=== PATIENT | female | born 1960 | race Caucasian/White ===

== ENCOUNTER 2024-01-19 16:25 | Emergency (ER) | payer BC, MEDICARE, SELFPAY ==
[2024-01-19] VITALS (8 sets, daily range): BP systolic 122–157; BP diastolic 58–84
[2024-01-19] MEDS: NSS 1000 IV (18:26)
[2024-01-19] MEDS: ZOFRAN 4 MG IV (18:27)
[2024-01-19 18:40] LABS: COVID-19 Antigen Positive (Negative)
[2024-01-19 18:42] LABS: % Immature Granulocytes 0.2 % (0-0.5); % Lymphocytes 19.5 % (20.5-51.1); % Monocytes 5.2 % (1.7-9.3); % Neutrophils 75.1 % (42.2-75.2); Absolute Lymphocytes 1.1 10^3/uL (1.2-3.4); Absolute Monocytes 0.3 10^3/uL (0.1-0.6); Absolute Neutrophils 4.3 10^3/uL (1.4-6.5); Hematocrit 37.1 % (37.0-47.0); Hemoglobin 12.7 g/dL (12.0-16.0); Mean Corp Hgb Conc. 34.2 g/dL (33.0-37.0); Mean Corpuscular Hgb 30.1 pg (27.0-31.0); Mean Corpuscular Volume 87.9 fL (81.0-99.0); Mean Platelet Volume 8.9 fL (7.4-10.4); Nucleated Red Blood Cells % 0 %; Platelet Count 199 10^3/uL (130-400); Red Blood Cell Count 4.22 10^6/uL (4.20-5.40); Red Cell Dist. Width 13.4 % (11.5-14.5); White Blood Cell Count 5.7 10^3/uL (4.8-10.8)
[2024-01-19 18:53] LABS: ALT (SGPT) 43 U/L (0-35); AST (SGOT) 34 U/L (14-36); Albumin 4.4 g/dl (3.5-5.0); Alkaline Phosphatase 120 U/L (38-126); Blood Urea Nitrogen 14 mg/dl (7-17); Calcium 9.9 mg/dl (8.4-10.2); Carbon Dioxide 28 mmol/L (22-30); Chloride 104 mmol/L (98-107); Glucose 100 mg/dl (70-99); Lipase 47 U/L (23-300); Potassium 4.4 mmol/L (3.5-5.1); Sodium 140 mmol/L (135-145); Total Bilirubin 0.7 mg/dl (0.2-1.3); eGFR > 60.00
[2024-01-19 19:26] LABS: Urine Albumin Negative (Neg - Trace); Urine Bilirubin Negative (Negative); Urine Character Slightly Cloudy (Clear); Urine Color Yellow; Urine Glucose Negative (Negative); Urine Ketone 3+ (Negative); Urine Leukocyte 1+ (Negative); Urine Nitrite Negative (Negative); Urine Occult Blood Negative (Negative); Urine Specific Gravity 1.015 (<1.030); Urine Urobilinogen Negative (Neg - 1+)
[2024-01-19 19:30] LABS: Urine Bacteria Many (Negative); Urine Squamous Cell >30 /LPF (Few)
[2024-01-19 19:31] LABS: Urine Red Blood Cell 0-2 /HPF (0-2)
--- NOTE | 2024-01-19 22:05 | ED.GENMED ---
History of Present Illness
General
Chief Complaint: Abdominal Symptoms
Source: patient
Exam Limitations: none
Time Seen by Provider: 01/19/24 16:56
Nursing documentation reviewed up to this point in time: agreed with
Travel History
Have you had any contact with someone who has COVID-19?: No
Do you have any symptoms of coronavirus? Fever > 100 degrees, chills, cough, shortness of breath, sore throat, loss of taste or smell, muscle aches, or headache?: No
History of Present Illness
History of Present Illness:
63-year-old female with a past medical history as documented who presents to the emergency room for evaluation of nausea and vomiting with some mild abdominal discomfort. Patient reports onset of symptoms yesterday�she says that she woke up with
nausea and had about 7 or 8 episodes of nonbloody vomiting throughout the day yesterday. She says that she had some vague abdominal discomfort. She says that this morning she woke up and was still nauseated and had another episode of vomiting; she
says she has not been able to tolerate food or drink by mouth and so she came to the emergency room for assessment. She has had some softer stools but no liquid stool/diarrhea. She denies any respiratory symptoms, chest pain, shortness of breath.
She denies any known sick contacts. She does report that she has been on antibiotics for UTI�she says that she has frequent UTIs and had some dysuria last week and was prescribed amoxicillin initially which was not helping this was changed to
Macrobid which seems to have improved her symptoms.
Past History
Past History
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
ED Past Surgical History: Bowel resection, Gynecological (hysterectomy 2016) and Other (arterial occlusion Left groin with stent)
Social History
Tobacco: Non-smoker
Alcohol: Occasional
Drug: None
Personal:
Living: with family
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
Family History
Family History: Other (Noncontributory)
Review of Systems
Review of Systems
All Other Systems: ROS reviewed and negative except as documented in HPI and ROS
Constitutional: Denies fever or chills
EENT: Denies sore throat or runny nose
Respiratory: Denies cough or trouble breathing
Cardiac: Denies chest pain or palpitations
ABD/GI: Reports abdominal pain, nausea and vomiting; Denies diarrhea
: Reports dysuria (Improved); Denies frequency or flank pain
Musculoskeletal: Denies neck pain or back pain
Neurological: Denies headache, weakness or numbness
Phy Exam
Physical Exam
Physical Exam:
General: Awake, alert, oriented x3; no acute distress
Head: Normocephalic, atraumatic
Eyes: Conjunctiva normal, sclera anicteric
Throat: Airway intact, handling secretions
Neck: Trachea midline, supple without meningismus
Lungs: Clear to auscultation bilaterally, no wheezing, rales, rhonchi
Heart: Regular rate and rhythm, no murmurs, gallops, or rubs
Abd: Soft, non distended, minimal tenderness in the lower abdomen
Neuro: Cranial nerves grossly intact, speech fluid
Skin: no rash
Extremities: No edema in extremities, equal pulses in all extremities
Scores
Heart Failure Risk
Heart Failure Risk Score: Not Applicable
Heart Score for Chest Pain Patients
STEMI patient?: Not applicable
Withdrawal Assessment of Alcohol
Withdrawal Assessment Completed?: Not applicable
Course
Orders/Labs/Results
Orders:
Orders
01/19/24 18:07
Ondansetron Injectable [Zofran] 4 mg IV NOW STA
01/19/24 18:08
CT Abd/pelvis W Iv Cont Urgent
Comment:
Reason For Exam: LLQ abd pain, N/V
0.9% Sodium Chloride 1000 ml [Nss] 1,000 ml IV BOLUS
01/19/24 18:16
COVID-19 Antigen Urgent
Source: Nasal Swab
Complete Blood Count/With Diff Urgent
Comprehensive Metabolic Panel Urgent
Lipase Urgent
01/19/24 19:14
Urinalysis Reflex To Culture Urgent
Date Specimen was Collected: 01/19/24
Time Specimen was Collected: 19:06
Urine Microscopic Reflex Cult Urgent
Urine Culture Urgent
MARITA Source: U
Specimen Description:
Date Specimen was Collected: 01/19/24
Time Specimen was Collected: 19:06
Abnormal Lab Results
01/19/24 01/19/24
18:16 19:14
Absolute Lymphs (auto) 1.1 L 10^3/uL
(1.2-3.4)
Lymphocytes % 19.5 L %
(20.5-51.1)
Glucose 100 H mg/dl
(70-99)
ALT 43 H U/L
(0-35)
Urine Ketones 3+ A
(Negative)
Leukocyte Esterase Rfl 1+ A
(Negative)
Urine Bacteria (Reflex) Many A
(Negative)
SARS-CoV-2 Antigen Positive A
(Negative)
01/19/24 18:16
01/19/24 18:16
Vital Signs
Initial and Last Documented VS:
Initial Vital Signs
Temp Pulse Resp BP Pulse Ox
37.3 C 76 18 150/84 100
01/19/24 16:30 01/19/24 16:30 01/19/24 16:30 01/19/24 16:30 01/19/24 16:30
Last Documented Vital Signs
Temp Pulse Resp BP Pulse Ox
37.3 C 88 18 122/67 99
01/19/24 16:30 01/19/24 21:37 01/19/24 21:37 01/19/24 21:37 01/19/24 21:37
MDM/Problems Addressed
Differential Diagnosis Includes:
Viral syndrome, gastritis, gastroenteritis, bowel obstruction, cholelithiasis, cholecystitis
MDM/Problems Addressed:
63-year-old female presents for evaluation of nausea and vomiting with some mild abdominal discomfort over the past 48 hours. She is currently being treated for UTI, urinary symptoms improved. Hypertensive in triage normalized on my assessment,
rest of vitals normal. Exam as above. Plan to check labs including a CBC and a CMP, lipase. Will check urinalysis. Will send for CT of the abdomen pelvis. Will check viral swabs. Will treat symptomatically. Monitor closely reassess after the
above.
Labs reviewed: CBC unremarkable, CMP no clinically significant abnormalities. Lipase normal. Urinalysis appears contaminated; urinary symptoms improved and no pyuria and she is already on antibiotic which I advised her to continue. Her COVID swab
was positive which I think likely accounts for her symptoms; her CT showed a questionable mild colitis but no other acute pathology. She has not really had diarrhea does have some mild lower abdominal discomfort but her primary concern is nausea
and vomiting which I think is likely attributable to COVID infection. She feels much better after Zofran and fluids here. She was able to tolerate p.o. food and liquid here without additional nausea or vomiting. No clear indication for admission
at this point in time I think she is stable for discharge. Advised her to follow-up with her primary doctor as an outpatient for reassessment. Will prescribe Zofran as needed for nausea and advised her to drink plenty of fluids and stick with a
bland diet. I did speak to her about potentially prescribing Paxlovid but she opted to forego this medication. She feels comfortable with this plan in place; spoke about return precautions and all questions answered.
Acute Exacerbation and/or Progression of Chronic Illness:
Acutely hypertensive resolved without intervention continue to monitor but no additional antihypertensive indicated at present
*Radiology
Radiology exam reviewed: radiology read reviewed
*Pulse Oximetry
Patient hypoxic: no
*Critical Care Note
Total Time (30-74mins, 75-104mins- exclusive of procedures): Not Applicable
Data Reviewed
Review of Other/Old Records Reveals: Labs and Records
Source: patient and records
ED Attending Note
-
Portions of this chart may have been created with voice recognition software.� Occasional wrong word or��sound alike� substitutions may have occurred due to the inherent limitations of voice recognition software.
Discharge Plan
Departure
Patient Disposition: Home (Routine Discharge)
Date of Disposition: 01/19/24
Time of Disposition: 21:26
Patient with high blood pressure during this ER visit?: Yes
Discharge Problem:
COVID-19, Nausea & vomiting
Instructions: Nausea and Vomiting, Adult (DC), COVID-19 ED
Prescriptions:
New
ondansetron 4 mg tablet,disintegrating
4 mg PO TIDPRN PRN (Reason: nausea/vomiting) Qty: 20 0RF
No Action
levothyroxine 100 MCG tablet
100 mcg PO DAILY
escitalopram oxalate 5 MG tablet
10 mg PO DAILY
zfcoveqvxmmr-wagi-klpgv acid [Centrum] 1 EACH tablet
1 ea PO DAILY
mupirocin 1 APPLIC ointment
1 applic topical BID Qty: 1 0RF
Patient Comments:
Pt denies starting this 3 days pre op, performed AM of surgery on 05/05/21 at bed side. Pt states 'I didnt have time to do it'
sennosides [senna] 1 TABLET tablet
2 tab PO BID 0RF
famotidine 20 MG tablet
20 mg PO HS Qty: 30 0RF
magnesium hydroxide 30 ML suspension
30 ml PO DAILYPRN PRN (Reason: constipation) 0RF
docusate sodium 100 MG capsule
100 mg PO BID 0RF
diazepam 5 MG tablet
5 mg PO HS Qty: 10 0RF
rivaroxaban [Xarelto] 10 MG tablet
10 mg PO QPM Qty: 2 0RF
Rx Instructions:
take sunday 9/3 pm and sat 94 pm
diphenhydramine HCl [Banophen] 25 MG capsule
25 mg PO HS Qty: 1 0RF
prednisone 10 MG tablet
40 mg PO TAPER Qty: 10 0RF
Rx Instructions:
4 tab(40mg) day 1, 3 tabs(30mg) day 2, 2 tabs(20mg) day3,
1 tab (10mg) day 4, then stop
hydromorphone 2 MG tablet
2 mg PO Q6HPRN PRN (Reason: moderate-severe pain) Qty: 30 0RF
Rx Instructions:
1 tab moderate pain or 2 if pain severe
dx joint replacement
ongoing therapy
acetaminophen [Tylenol Extra Strength] 500 MG tablet
1,000 mg PO QID Qty: 0 0RF
ondansetron 4 MG tablet,disintegrating
4 mg PO TID Qty: 20 0RF
Rx Instructions:
while on Dilaudid
rivaroxaban [Xarelto] 20 MG tablet
20 mg PO QPM Qty: 0 0RF
Rx Instructions:
resume Sunday 9/5 pm
cephalexin 500 mg capsule
500 mg PO Q6H 7 Days Qty: 28 0RF
Referrals:
Cosme Connell MD [Family Provider] - Follow up in 5-7 days
Activity Restrictions/Additional Instructions:
Thank you for visiting the Emergency Department at [facility].
1. Please schedule a follow up appointment as directed. Call first thing tomorrow morning to make an appointment.
2. If indicated, please take your medications as instructed and indicated on discharge paperwork.
3. If any of your symptoms do not improve, or persist, or become more severe within 6-12 hours, please return to the emergency department for further care.
4. Please return to the emergency department if you develop a headache, neck pain/stiffness, fever greater than 100.4F, chest pain, shortness of breath, persistent nausea, vomiting, slurred speech, difficulty walking, numbness/tingling, weakness,
signs of infection or any other symptoms that are worrisome to you.
Please call [phone] if you have any questions.
Interventions
Interventions:
*Risk Screen - Suicide Last Done: 01/19/24 17:07
*General Assessment Last Done: 01/19/24 16:30
*Neglect/Abuse Screening Last Done: 01/19/24 16:30
ED- Fall Risk Assessment Last Done: 01/19/24 17:06
*ED COVID-19 Vaccine History Last Done: 01/19/24 16:30
VF-Pvpueu-Ygxipyqmcu Assessment Last Done: 01/19/24 17:06
Discharge Date and Time
Print Language: ARMENIAN
== END 2024-01-19 22:43 | disposition home or self-care (01) ==
LOC: EMR 16:25
PROVIDERS: EMERGENCY PHYSICIAN Emergency Medicine; FAMILY PHYSICIAN Family Medicine
DX: U07.1 COVID-19 (principal); R11.2 Nausea with vomiting, unspecified; R03.0 Elevated blood-pressure reading, without diagnosis of hypertension
CPT/HCPCS: 99285; 96374; 96361; 74177; 80053; 81003; 81015; 83690; 85025; 87077; 87086; 87186; 87811; Q9967

== ENCOUNTER 2024-01-31 20:41 | Emergency (ER) | payer BC, MEDICARE, SELFPAY ==
[2024-01-31 20:51] VITALS: BP 155/97
[2024-01-31 21:10] VITALS: BP 143/88
--- NOTE | 2024-01-31 21:19 | EDRN ---
Addendum entered by Ashley Valentino RN 01/31/24 21:28:
Pt. also reports only took 2 doses of antibiotic for UTI.
Original Note:
Pt. reports she was diagnosed w/ covid on 01/19/24.
[2024-01-31 21:28] LABS: Urine Albumin Negative (Neg - Trace); Urine Bilirubin Negative (Negative); Urine Character Clear (Clear); Urine Color Yellow; Urine Glucose Negative (Negative); Urine Ketone Trace (Negative); Urine Leukocyte Negative (Negative); Urine Nitrite Negative (Negative); Urine Occult Blood Negative (Negative); Urine Urobilinogen Negative (Neg - 1+)
[2024-01-31 21:33] VITALS: BMI 42.8
--- NOTE | 2024-01-31 21:57 | ED.GENMED ---
History of Present Illness
General
Chief Complaint: Dizziness
Source: patient, records and family
Exam Limitations: none
Time Seen by Provider: 01/31/24 21:39
Nursing documentation reviewed up to this point in time: agreed with
Travel History
Have you had any contact with someone who has COVID-19?: No
Do you have any symptoms of coronavirus? Fever > 100 degrees, chills, cough, shortness of breath, sore throat, loss of taste or smell, muscle aches, or headache?: Yes
Symptoms:: covid test + last week
History of Present Illness
History of Present Illness:
Patient is a 63-year-old female with a history of ovarian cancer who presents to the emergency department complaining of increased lightheadedness and dizziness with nausea but no vomiting. Patient's had intermittent diarrhea with normal bowels.
Patient complains of chills without fever. Patient denies any nasal congestion, sore throat or cough. Patient complains of fatigue. Patient was seen 12 days ago in the emergency department and was found to have COVID. At that time the patient
was still being treated for UTI. Patient denies any dysuria, hematuria but admits to urgency and frequency. Patient mainly complains also of fatigue. Patient denies any chest pain, shortness of breath, abdominal pain or back pain.
Past History
Past History
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
ED Past Surgical History: Bowel resection, Gynecological (hysterectomy 2016) and Other (arterial occlusion Left groin with stent)
Social History
Tobacco: Non-smoker
Alcohol: Occasional
Drug: None
Personal:
Living: with family
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
Family History
Family History: Other (Noncontributory)
Review of Systems
Review of Systems
All Other Systems: ROS reviewed and negative except as documented in HPI and ROS
Constitutional: Reports fatigue and chills; Denies fever
EENT: Reports no symptoms
Respiratory: Reports no symptoms
Cardiac: Reports no symptoms
ABD/GI: Reports nausea; Denies abdominal pain, vomiting, diarrhea or anorexia
: Reports no symptoms
Musculoskeletal: Reports no symptoms
Skin: Reports no symptoms
Neurological: Reports no symptoms
Hematologic/Lymphatic: Reports no symptoms
Psychiatric: Reports no symptoms
Phy Exam
Physical Exam
Physical Exam:
Physical Exam
General: mild distress, alert and appropriate, obese, dry mucous membranes
HENT: Normocephalic, supple with no lymphadenopathy, no thyromegaly
Eyes: Clear sclera, conjuctiva without injection
Heart: Regular rhythm and rate. No S3, S4. No murmur. No NVD
Lungs: No respiratory distress, no stridor, lung sounds clear and equal bilaterally
Abdomen: Soft, nontender, no organomegaly, BS good
Neuro: Alert and oriented x 3, CN II - XII intact, no motor focality
Skin: no rash
Psychiatric: well kept. interactive and cooperative
Extremities: No edema, cyanosis, tenderness
Course
Orders/Labs/Results
Orders:
Orders
01/31/24 21:17
UA Reflex to Culture [Urinalysis Reflex To Culture] Urgent
Date Specimen was Collected: 01/31/24
Time Specimen was Collected: 21:16
01/31/24 21:55
0.9% Sodium Chloride 1000 ml [Nss] 1,000 ml IV BOLUS
Ondansetron Injectable [Zofran] 4 mg IV NOW STA
01/31/24 22:15
Complete Blood Count/With Diff Urgent
Comprehensive Metabolic Panel Urgent
Abnormal Lab Results
01/31/24 01/31/24
21:17 22:15
Absolute Lymphs (auto) 0.9 L 10^3/uL
(1.2-3.4)
Neutrophils % 77.9 H %
(42.2-75.2)
Lymphocytes % 16.9 L %
(20.5-51.1)
Glucose 139 H mg/dl
(70-99)
Calcium 10.4 H mg/dl
(8.4-10.2)
AST 44 H U/L
(14-36)
ALT 47 H U/L
(0-35)
Urine Ketones Trace A
(Negative)
01/31/24 22:15
01/31/24 22:15
Vital Signs
Initial and Last Documented VS:
Initial Vital Signs
Temp Pulse Resp BP Pulse Ox
97.9 F 89 18 155/97 100
01/31/24 20:51 01/31/24 20:51 01/31/24 20:51 01/31/24 20:51 01/31/24 20:51
Last Documented Vital Signs
Temp Pulse Resp BP Pulse Ox
97.9 F 77 12 166/74 100
01/31/24 20:51 02/01/24 00:30 02/01/24 00:30 02/01/24 00:02 02/01/24 00:30
*Radiology
Radiology exam reviewed: other (na)
*Pulse Oximetry
Patient hypoxic: no
*EKG
Interpreted by ED Provider?: NA
*Press Feeder Interpretation
Rate: Press Feeder- N/A
*Critical Care Note
Total Time (30-74mins, 75-104mins- exclusive of procedures): Not Applicable
Update Note
Update Note:
Patient feeling much improved and able to eat and drink. Patient did well with Zofran. Patient will be discharged. Believe this to be a result of possible gastritis. It could be a long-term effect of COVID.
ED Attending Note
-
Portions of this chart may have been created with voice recognition software.� Occasional wrong word or��sound alike� substitutions may have occurred due to the inherent limitations of voice recognition software.
Discharge Plan
Departure
Patient Disposition: Home (Routine Discharge)
Date of Disposition: 02/01/24
Time of Disposition: 00:38
Patient with high blood pressure during this ER visit?: Yes
Condition: Fair
Covid-19: Not Applicable
Discharge Problem:
Acute gastritis, Mild dehydration
Instructions: Dehydration, Adult (DC), [place] Diet, Nausea and Vomiting, Adult (DC), BLOOD PRESSURE
Prescriptions:
New
ondansetron 8 mg tablet,disintegrating
8 mg PO TID PRN (Reason: nausea and vomiting) Qty: 20 0RF
No Action
levothyroxine 100 MCG tablet
100 mcg PO DAILY
escitalopram oxalate 5 MG tablet
10 mg PO DAILY
rfhsoopkqsvj-jyle-xviya acid [Centrum] 1 EACH tablet
1 ea PO DAILY
mupirocin 1 APPLIC ointment
1 applic topical BID Qty: 1 0RF
Patient Comments:
Pt denies starting this 3 days pre op, performed AM of surgery on 05/05/21 at bed side. Pt states 'I didnt have time to do it'
sennosides [senna] 1 TABLET tablet
2 tab PO BID 0RF
famotidine 20 MG tablet
20 mg PO HS Qty: 30 0RF
magnesium hydroxide 30 ML suspension
30 ml PO DAILYPRN PRN (Reason: constipation) 0RF
docusate sodium 100 MG capsule
100 mg PO BID 0RF
diazepam 5 MG tablet
5 mg PO HS Qty: 10 0RF
rivaroxaban [Xarelto] 10 MG tablet
10 mg PO QPM Qty: 2 0RF
Rx Instructions:
take sunday 9/3 pm and sat 9/4 pm
diphenhydramine HCl [Banophen] 25 MG capsule
25 mg PO HS Qty: 1 0RF
prednisone 10 MG tablet
40 mg PO TAPER Qty: 10 0RF
Rx Instructions:
4 tab(40mg) day 1, 3 tabs(30mg) day 2, 2 tabs(20mg) day3,
1 tab (10mg) day 4, then stop
hydromorphone 2 MG tablet
2 mg PO Q6HPRN PRN (Reason: moderate-severe pain) Qty: 30 0RF
Rx Instructions:
1 tab moderate pain or 2 if pain severe
dx joint replacement
ongoing therapy
acetaminophen [Tylenol Extra Strength] 500 MG tablet
1,000 mg PO QID Qty: 0 0RF
ondansetron 4 MG tablet,disintegrating
4 mg PO TID Qty: 20 0RF
Rx Instructions:
while on Dilaudid
rivaroxaban [Xarelto] 20 MG tablet
20 mg PO QPM Qty: 0 0RF
Rx Instructions:
resume Sunday 9/5 pm
cephalexin 500 mg capsule
500 mg PO Q6H 7 Days Qty: 28 0RF
ondansetron 4 mg tablet,disintegrating
4 mg PO TIDPRN PRN (Reason: nausea/vomiting) Qty: 20 0RF
Referrals:
UNKNOWN - PT DOES,NOT KNOW [Family Provider] -
Activity Restrictions/Additional Instructions:
Continue present medications and therapy. Make sure to follow-up with your family physician in 3 to 4 days.
Interventions
Interventions:
ED- Fall Risk Assessment Last Done: 01/31/24 23:41
RA-Qrqkbh-Ulydubuncf Assessment Last Done: 01/31/24 21:33
ED- Neurological Assessment Last Done: 01/31/24 21:33
ED Swallowing Screen Last Done: 01/31/24 21:33
Discharge Date and Time
Print Language: MALIAN
[2024-01-31 22:00] VITALS: BP 146/61
[2024-01-31] MEDS: ZOFRAN 4 MG IV (22:13)
[2024-01-31] MEDS: NSS 1000 IV (22:13)
[2024-01-31 22:24] LABS: % Immature Granulocytes 0.2 % (0-0.5); % Lymphocytes 16.9 % (20.5-51.1); % Neutrophils 77.9 % (42.2-75.2); Absolute Lymphocytes 0.9 10^3/uL (1.2-3.4); Absolute Monocytes 0.3 10^3/uL (0.1-0.6); Hematocrit 38.9 % (37.0-47.0); Hemoglobin 13.2 g/dL (12.0-16.0); Mean Corp Hgb Conc. 33.9 g/dL (33.0-37.0); Mean Corpuscular Hgb 30.2 pg (27.0-31.0); Mean Platelet Volume 9.4 fL (7.4-10.4); Nucleated Red Blood Cells % 0 %; Platelet Count 198 10^3/uL (130-400); Red Blood Cell Count 4.37 10^6/uL (4.20-5.40); Red Cell Dist. Width 13.2 % (11.5-14.5); White Blood Cell Count 5.2 10^3/uL (4.8-10.8)
[2024-01-31 22:45] LABS: ALT (SGPT) 47 U/L (0-35); AST (SGOT) 44 U/L (14-36); Albumin 4.5 g/dl (3.5-5.0); Alkaline Phosphatase 107 U/L (38-126); Blood Urea Nitrogen 16 mg/dl (7-17); Calcium 10.4 mg/dl (8.4-10.2); Carbon Dioxide 25 mmol/L (22-30); Chloride 104 mmol/L (98-107); Estimated Creatinine Clearance 100 ml/min; Glucose 139 mg/dl (70-99); Potassium 4.2 mmol/L (3.5-5.1); Sodium 138 mmol/L (135-145); Total Bilirubin 0.6 mg/dl (0.2-1.3); Total Protein 7.3 g/dl (6.3-8.2); eGFR > 60.00
[2024-01-31 23:00] VITALS: BP 130/61
[2024-02-01 00:02] VITALS: BP 166/74
== END 2024-02-01 01:18 | disposition home or self-care (01) ==
LOC: EMR 20:41
PROVIDERS: EMERGENCY PHYSICIAN Emergency Medicine
DX: K29.00 Acute gastritis without bleeding (principal); E86.0 Dehydration; U07.1 COVID-19; E03.9 Hypothyroidism, unspecified; G47.30 Sleep apnea, unspecified; Z85.43 Personal history of malignant neoplasm of ovary; Z86.718 Personal history of other venous thrombosis and embolism; Z87.440 Personal history of urinary (tract) infections; Z90.710 Acquired absence of both cervix and uterus
CPT/HCPCS: 99283; 96374; 96361; 80053; 81003; 85025

== ENCOUNTER 2024-02-20 19:26 | Emergency (ER) | payer BC, MEDICARE, SELFPAY ==
[2024-02-20 19:31] VITALS: BP 148/70
--- NOTE | 2024-02-20 20:25 | ED.GENMED ---
History of Present Illness
General
Chief Complaint: Visual Problem
Source: patient
Exam Limitations: none
Time Seen by Provider: 02/20/24 20:04
Travel History
Have you had any contact with someone who has COVID-19?: No
Do you have any symptoms of coronavirus? Fever > 100 degrees, chills, cough, shortness of breath, sore throat, loss of taste or smell, muscle aches, or headache?: No
History of Present Illness
History of Present Illness:
63 year old female with remote history of ovarian cancer and reflux presents complaining of progressive worsening blurry vision out of the left eye started 3 days ago. She notes slight discomfort to the left eye. She denies loss of vision or
double vision. She denies any significant headache. She was also told recently she is a borderline diabetic and they have noted a sweet smelling urine recently. She is urinating more frequently. She denies chest pain or shortness of breath. No
other complaints at this time.
Past History
Past History
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
ED Past Surgical History: Bowel resection, Gynecological (hysterectomy 2016) and Other (arterial occlusion Left groin with stent)
Social History
Tobacco: Non-smoker
Alcohol: Occasional
Drug: None
Personal:
Living: with family
Employment: Retired (s[employer])
Family History
Family History: Other (Noncontributory)
Phy Exam
Physical Exam
Physical Exam:
General: Well-appearing female no acute respiratory distress
HEENT: Normocephalic atraumatic pupils equal round reactive to light extraocular motions are intact. Funduscopic exam within normal limits bilaterally
Heart: Regular rate and rhythm no murmurs
Lungs: Clear no wheeze or rales
Extremities: No cyanosis or edema
Neurologic exam: Alert and oriented visual mo intact. Finger-nose intact.
Extremities: No cyanosis or edema
Skin warm no rash or lesions
Course
Orders/Labs/Results
Orders:
Orders
02/20/24 20:17
CT Head W/o Iv Contrast Urgent
Comment:
Reason For Exam: left eye blurry vision, history of ovarian CA
02/20/24 20:24
Complete Blood Count/With Diff Urgent
Comprehensive Metabolic Panel Urgent
02/20/24 20:34
Urinalysis Reflex To Culture Urgent
Date Specimen was Collected: 02/20/24
Time Specimen was Collected: 20:27
Urine Microscopic Reflex Cult Urgent
Urine Culture Urgent
MARITA Source: U
Specimen Description:
Date Specimen was Collected: 02/20/24
Time Specimen was Collected: 20:27
Abnormal Lab Results
02/20/24 02/20/24
20:24 20:34
WBC 4.6 L 10^3/uL
(4.8-10.8)
MCHC 32.9 L g/dL
(33.0-37.0)
Plt Count 92 L 10^3/uL
(130-400)
MPV 11.0 H fL
(7.4-10.4)
BUN 25 H mg/dl
(7-17)
Glucose 100 H mg/dl
(70-99)
Calcium 10.3 H mg/dl
(8.4-10.2)
AST 41 H U/L
(14-36)
ALT 42 H U/L
(0-35)
Urine Nitrite (Reflex) Positive A
(Negative)
Leukocyte Esterase Rfl Trace A
(Negative)
Urine WBC (Reflex) 16-20 A /HPF
(0-5)
Urine Bacteria (Reflex) Many A
(Negative)
02/20/24 20:24
02/20/24 20:24
Vital Signs
Initial and Last Documented VS:
Initial Vital Signs
Temp Pulse Resp BP Pulse Ox
98.0 F 79 22 148/70 100
02/20/24 19:31 02/20/24 19:31 02/20/24 19:31 02/20/24 19:31 02/20/24 19:31
Last Documented Vital Signs
Temp Pulse Resp BP Pulse Ox
98.0 F 79 22 148/70 100
02/20/24 19:31 02/20/24 19:31 02/20/24 19:31 02/20/24 19:31 02/20/24 19:31
MDM/Problems Addressed
Differential Diagnosis Includes:
Blurry vision left eye. Consider corneal abrasion versus increased intraocular pressure versus neurologic event. She notes excessive thirst and increased urination. Consider hyperglycemia. Will check labs. CT of head pending.
*Critical Care Note
Total Time (30-74mins, 75-104mins- exclusive of procedures): Not Applicable
Update Note
Update Note:
Workup here essentially negative. CT negative. Urinalysis looks like contaminated specimen large amount of squamous cells. Patient has no urinary symptoms would not treat at this time. Pressures were checked in the left eye with a Herber-Pen which
averaged 15 mmHg. There is no abrasion in the left eye that was visible on my exam with fluorescein stain and Murillo lamp. No urgent indication for any further intervention but would recommend follow-up with ophthalmology as an outpatient. She is
stable for discharge
ED Attending Note
-
Portions of this chart may have been created with voice recognition software.� Occasional wrong word or��sound alike� substitutions may have occurred due to the inherent limitations of voice recognition software.
Discharge Plan
Departure
Patient Disposition: Home (Routine Discharge)
Date of Disposition: 02/20/24
Time of Disposition: 22:11
Patient with high blood pressure during this ER visit?: No
Discharge Problem:
Blurred vision, left eye
Prescriptions:
No Action
levothyroxine 100 MCG tablet
100 mcg PO DAILY
Centrum 1 EACH tablet
1 ea PO DAILY
dicyclomine 20 mg tablet
20 mg PO BID
escitalopram oxalate 10 mg tablet
10 mg PO DAILY
Referrals:
Axel Singh MD [Family Provider] -
Activity Restrictions/Additional Instructions:
Please return here for worsening symptoms otherwise follow-up with your eye doctor
Interventions
Interventions:
*Risk Screen - Suicide Last Done: 02/20/24 20:57
*General Assessment Last Done: 02/20/24 19:34
*Neglect/Abuse Screening Last Done: 02/20/24 20:57
ED- Fall Risk Assessment Last Done: 02/20/24 20:57
*ED COVID-19 Vaccine History Last Done: 02/20/24 20:57
ED- Neurological Assessment Last Done: 02/20/24 20:42
ED-EENT Assessment Last Done: 02/20/24 20:42
Discharge Date and Time
Print Language: [id number]
[2024-02-20 20:32] LABS: % Immature Granulocytes 0.2 % (0-0.5); % Lymphocytes 27.3 % (20.5-51.1); % Monocytes 7.4 % (1.7-9.3); % Neutrophils 65.1 % (42.2-75.2); Absolute Lymphocytes 1.3 10^3/uL (1.2-3.4); Absolute Monocytes 0.3 10^3/uL (0.1-0.6); Hematocrit 39.5 % (37.0-47.0); Mean Corp Hgb Conc. 32.9 g/dL (33.0-37.0); Mean Corpuscular Hgb 30.1 pg (27.0-31.0); Mean Corpuscular Volume 91.4 fL (81.0-99.0); Nucleated Red Blood Cells % 0 %; Platelet Count 92 10^3/uL (130-400); Red Blood Cell Count 4.32 10^6/uL (4.20-5.40); Red Cell Dist. Width 13.2 % (11.5-14.5); White Blood Cell Count 4.6 10^3/uL (4.8-10.8)
[2024-02-20 20:40] LABS: Urine Albumin Negative (Neg - Trace); Urine Bilirubin Negative (Negative); Urine Character Slightly Cloudy (Clear); Urine Color Yellow; Urine Glucose Negative (Negative); Urine Ketone Negative (Negative); Urine Leukocyte Trace (Negative); Urine Nitrite Positive (Negative); Urine Occult Blood Negative (Negative); Urine Specific Gravity 1.025 (<1.030); Urine Urobilinogen Negative (Neg - 1+)
[2024-02-20 20:48] LABS: ALT (SGPT) 42 U/L (0-35); AST (SGOT) 41 U/L (14-36); Albumin 4.7 g/dl (3.5-5.0); Alkaline Phosphatase 103 U/L (38-126); Blood Urea Nitrogen 25 mg/dl (7-17); Calcium 10.3 mg/dl (8.4-10.2); Carbon Dioxide 26 mmol/L (22-30); Chloride 105 mmol/L (98-107); Glucose 100 mg/dl (70-99); Potassium 4.1 mmol/L (3.5-5.1); Sodium 141 mmol/L (135-145); Total Bilirubin 0.4 mg/dl (0.2-1.3); Total Protein 7.2 g/dl (6.3-8.2); eGFR > 60.00
[2024-02-20 20:49] LABS: Urine Bacteria Many (Negative); Urine Squamous Cell >30 /LPF (Few); Urine White Cell 16-20 /HPF (0-5)
[2024-02-20 20:50] LABS: Urine Red Blood Cell 0-2 /HPF (0-2)
[2024-02-20 22:18] VITALS: BP 146/70
== END 2024-02-20 22:19 | disposition home or self-care (01) ==
LOC: EMR 19:26
PROVIDERS: Physician Assistant; EMERGENCY PHYSICIAN Emergency Medicine; FAMILY PHYSICIAN Internal Medicine
DX: H53.8 Other visual disturbances (principal); E03.9 Hypothyroidism, unspecified; F41.9 Anxiety disorder, unspecified; E11.9 Type 2 diabetes mellitus without complications; G47.30 Sleep apnea, unspecified; G89.29 Other chronic pain; K21.9 Gastro-esophageal reflux disease without esophagitis; Z85.43 Personal history of malignant neoplasm of ovary; Z86.718 Personal history of other venous thrombosis and embolism; Z90.710 Acquired absence of both cervix and uterus
CPT/HCPCS: 99284; 70450; 80053; 81003; 81015; 85025; 87086

== ENCOUNTER 2025-02-23 16:10 | Emergency (ER) | payer BC, MEDICARE, SELFPAY ==
[2025-02-23 16:18] VITALS: BP 176/94
[2025-02-23 16:44] LABS: % Immature Granulocytes 0.4 % (0-0.5); % Lymphocytes 29.5 % (20.5-51.1); % Monocytes 7.3 % (1.7-9.3); % Neutrophils 62.8 % (42.2-75.2); Absolute Lymphocytes 1.4 10^3/uL (1.2-3.4); Absolute Monocytes 0.4 10^3/uL (0.1-0.6); Hematocrit 37.8 % (37.0-47.0); Hemoglobin 12.8 g/dL (12.0-16.0); Mean Corp Hgb Conc. 33.9 g/dL (33.0-37.0); Mean Corpuscular Hgb 30.1 pg (27.0-31.0); Mean Corpuscular Volume 88.9 fL (81.0-99.0); Mean Platelet Volume 9.2 fL (7.4-10.4); Nucleated Red Blood Cells % 0 %; Platelet Count 212 10^3/uL (130-400); Red Blood Cell Count 4.25 10^6/uL (4.20-5.40); White Blood Cell Count 4.8 10^3/uL (4.8-10.8)
[2025-02-23 16:52] LABS: ALT (SGPT) 23 U/L (0-35); AST (SGOT) 22 U/L (14-36); Albumin 4.7 g/dl (3.5-5.0); Alkaline Phosphatase 100 U/L (38-126); Blood Urea Nitrogen 19 mg/dl (7-17); Calcium 10.1 mg/dl (8.4-10.2); Carbon Dioxide 23 mmol/L (22-30); Chloride 109 mmol/L (98-107); Glucose 96 mg/dl (70-99); Potassium 4.6 mmol/L (3.5-5.1); Sodium 140 mmol/L (135-145); Total Bilirubin 0.5 mg/dl (0.2-1.3); Total Protein 7.5 g/dl (6.3-8.2); eGFR > 60.00
[2025-02-23 16:55] LABS: Urine Albumin Negative (Neg - Trace); Urine Bilirubin Negative (Negative); Urine Character Clear (Clear); Urine Color Yellow; Urine Glucose Negative (Negative); Urine Ketone Negative (Negative); Urine Leukocyte Negative (Negative); Urine Nitrite Negative (Negative); Urine Occult Blood Negative (Negative); Urine Specific Gravity 1.005 (<1.030); Urine Urobilinogen Negative (Neg - 1+)
[2025-02-23 20:26] VITALS: BP 129/64
[2025-02-23 20:27] VITALS: BMI 42.6
--- NOTE | 2025-02-23 20:38 | ED.GENMED ---
History of Present Illness
General
Chief Complaint: Flank Pain
Source: patient, spouse and family (daughter)
Exam Limitations: none
Time Seen by Provider: 02/23/25 20:26
Nursing documentation reviewed up to this point in time: agreed with
History of Present Illness
History of Present Illness:
Note:
CHIEF COMPLAINT(S)
Flank pain radiating to the back.
HISTORY OF PRESENT ILLNESS
The patient is a 64-year-old female with a history of remission from brain cancer, presenting with right flank pain radiating to the back, which started a couple of days ago. The patient denied any previous episodes of similar pain. The pain was
severe enough to impair her ability to drive. No associated vomiting or diarrhea was reported. The patient consumed food today. She denies hematuria and notes normal bowel movements and urine appearance.
ADDITIONAL HISTORY OBTAINED FROM SOURCES OTHER THAN THE PATIENT
According to the daughter, the pain was intense enough that the patient could not drive herself to the hospital.
REVIEW OF SYSTEMS
- Gastrointestinal: Denies vomiting and diarrhea.
- Genitourinary: Denies hematuria; urine appears normal.
- Musculoskeletal: Flank pain radiating to the back.
PHYSICAL EXAM
Physical Exam
General: no apparent distress, not acutely ill
Neck: supple. no meningeal signs. normal posterior pharynx
Heart: s1/s2 regular rate and rhythm, no murmur. equal radial
pulses.
HEENT: Pupils equal round reactive to light, EOMI
Lungs: no acute respiratory distress. clear bilaterally
Abdomen: normal bowel sounds. not tender. no CVAT
Neuro: alert and oriented. no focal neurological deficits cranial nerves II through XII intact
Skin: no rash
Psychiatric: well kept. interactive and cooperative
Extremities: no edema. no calf tenderness. negative homans. good distal pulses
DIFFERENTIAL DIAGNOSIS
The Differential Diagnosis includes, in no particular order and is not limited to:
- Nephrolithiasis
- Pyelonephritis
- Musculoskeletal pain
- Herpes Zoster
- Abdominal aortic aneurysm
- Pancreatitis
- Cholelithiasis
- Diverticulitis
- Renal tumor
- Urinary tract infection
02/23/25 - 22:13
Patient remains pain-free and stable for discharge. Abdominal exam benign. CT scan shows constipation, no new findings. Discharge with follow-up for managing constipation recommended.
SUMMARY OF ENCOUNTER
The patient is a 64-year-old female who presented to the emergency department with severe right flank pain radiating to the back, impairing her ability to drive. She denied associated vomiting or diarrhea and noted normal bowel movements and urine
appearance. Given her history, a CT scan was conducted, which identified constipation but no other significant findings. The patient�s pain was managed appropriately, leading to stabilization.
DISPOSITION
Discharged home.
ASSESSMENT
Right-flank pain due to constipation.
MEDICATION RECONCILIATION
Prescribed Miralax once daily for one week.
MEDICAL DECISION MAKING
1. Number & Complexity of Problems: Chronic conditions affecting care: history of remission from brain cancer.
2. Data Reviewed: CT scan reviewed indicated constipation without additional abnormalities.
3. Risk: Consideration of admission/observation was made due to pain severity and radiating nature. However, outpatient management was appropriate based on reassuring work-up, stable vitals, symptom control, and follow-up reliability.
FOLLOW-UP INSTRUCTIONS
Follow up with primary care provider for further management of constipation and any further evaluation necessary.
PATHOLOGIES TO CONSIDER
- Nephrolithiasis
- Pyelonephritis
- Abdominal aortic aneurysm
- Pancreatitis
- Cholelithiasis
- Renal tumor
- Urinary tract infection
Past History
Past History
ED Past Medical History: Cancer (ovarian last chemo/radiation 2016, To bowel), Hypothyroidism, Psychiatric (Anxiety) and Other (chronic low back pain, Sleep apnea, DVT, )
ED Past Surgical History: Bowel resection, Gynecological (hysterectomy 2016) and Other (arterial occlusion Left groin with stent)
Social History
Tobacco: Non-smoker
Alcohol: Occasional
Drug: None
Personal:
Living: with family
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
Family History
Family History: Other (Noncontributory)
Phy Exam
Physical Exam
Physical Exam:
.
Course
Orders/Labs/Results
Orders:
Orders
02/23/25 16:28
Complete Blood Count/With Diff Urgent
Comprehensive Metabolic Panel Urgent
Urinalysis Reflex To Culture Urgent
Date Specimen was Collected: 02/23/25
Time Specimen was Collected: 16:13
02/23/25 20:37
CT Abd/pelvis W Iv Cont Urgent
Comment:
Reason For Exam: right flank and back pain 2-3 days
Abnormal Lab Results
02/23/25
16:28
Chloride 109 H mmol/L
(98-107)
BUN 19 H mg/dl
(7-17)
02/23/25 16:28
02/23/25 16:28
Vital Signs
Initial and Last Documented VS:
Initial Vital Signs
Temp Pulse Resp BP Pulse Ox
98.4 F 90 18 176/94 98
02/23/25 16:18 02/23/25 16:18 02/23/25 16:18 02/23/25 16:18 02/23/25 16:18
Last Documented Vital Signs
Temp Pulse Resp BP Pulse Ox
98.4 F 76 18 140/68 98
02/23/25 16:18 02/23/25 20:28 02/23/25 20:28 02/23/25 22:00 02/23/25 22:00
*Pulse Oximetry
SaO2: 98
Patient hypoxic: no
*Critical Care Note
Total Time (30-74mins, 75-104mins- exclusive of procedures): Not Applicable
ED Attending Note
-
Portions of this chart may have been created with voice recognition software.� Occasional wrong word or��sound alike� substitutions may have occurred due to the inherent limitations of voice recognition software.
Discharge Plan
Departure
Patient Disposition: Home (Routine Discharge)
Date of Disposition: 02/23/25
Time of Disposition: 22:03
Patient with high blood pressure during this ER visit?: Yes
Condition: Good
Discharge Problem:
Acute right flank pain, Constipation
Instructions: Flank Pain (DC), Constipation in adults - ED discharge instructions, BLOOD PRESSURE
Prescriptions:
No Action
levothyroxine 100 MCG tablet
100 mcg PO DAILY
Centrum 1 EACH tablet
1 ea PO DAILY
dicyclomine 20 mg tablet
20 mg PO BID
escitalopram oxalate 10 mg tablet
10 mg PO DAILY
nitrofurantoin macrocrystal 100 mg capsule
100 mg PO BID 5 Days Qty: 10 0RF
Referrals:
UNKNOWN - PT DOES,NOT KNOW [Family Provider]
Activity Restrictions/Additional Instructions:
Follow up with primary care. Return for any concerns. Use miralax once daily, 1 scoop in juice for 1 week.
Interventions
Interventions:
*Risk Screen - Suicide Last Done: 02/23/25 20:30
*General Assessment Last Done: 02/23/25 20:30
*Neglect/Abuse Screening Last Done: 02/23/25 20:30
*ED- Fall Risk Assessment Last Done: 02/23/25 20:30
*ED COVID-19 Vaccine History Last Done: 02/23/25 20:30
SO-Sxpxfy-Meefbeecae Assessment Last Done: 02/23/25 20:30
ED-Female Genitourinary Assessment Last Done: 02/23/25 20:30
Discharge Date and Time
Print Language: GEORGIAN
[2025-02-23 21:14] VITALS: BP 143/69
[2025-02-23 22:00] VITALS: BP 140/68
== END 2025-02-23 22:54 | disposition home or self-care (01) ==
LOC: EMR 16:10
PROVIDERS: Emergency Medicine; EMERGENCY PHYSICIAN Emergency Medicine; FAMILY PHYSICIAN Internal Medicine
DX: R10.9 Unspecified abdominal pain (principal); K59.00 Constipation, unspecified; E03.9 Hypothyroidism, unspecified; F41.9 Anxiety disorder, unspecified; G47.30 Sleep apnea, unspecified; Z85.43 Personal history of malignant neoplasm of ovary; Z86.718 Personal history of other venous thrombosis and embolism; Z90.710 Acquired absence of both cervix and uterus
CPT/HCPCS: 99284; 74177; 80053; 81003; 85025; Q9967

== ENCOUNTER → 2025-04-24 15:48 | Outpatient (REF) | payer BC, MEDICARE, SELFPAY | LOC: HWRCS 15:48 | PROVIDERS: ATTENDING PHYSICIAN Nuclear Medicine Nuclear Cardiology | DX: R06.02 Shortness of breath (principal); E78.5 Hyperlipidemia, unspecified; I10 Essential (primary) hypertension; G47.33 Obstructive sleep apnea (adult) (pediatric) | CPT/HCPCS: 93306 ==